=== PATIENT | female | born 1995 | race Caucasian/White ===

== ENCOUNTER 2020-09-11 20:52 | Emergency (ER) | payer SELFPAY ==
[~2020-09-11] VITALS: Ht 167.6 cm; Wt 61.7 kg
[~2020-09-11 20:52] MED LIST: FERR-252 PO; PREN-385
[2020-09-11 21:10] VITALS: BP 141/80
--- NOTE | 2020-09-11 21:12 | NUR ---
TO LOBBY A/W BED AMBULATORY
--- NOTE | 2020-09-11 23:05 | NUR ---
SEEN AND EXAMINED BY JESSICA WITH ORDERS AND CARRIED OUT
[2020-09-11 23:12] LABS: BASOPHILS # (AUTO) 0.1 K/uL (0.00-0.22); BASOPHILS % (AUTO) 0.8 % (0.0-2.0); EOSINOPHILS % (AUTO) 0.3 % (0.0-4.0); HEMATOCRIT 41.9 % (36-48); LYMPHOCYTES # (AUTO) 2.3 K/uL (2.5-16.5); LYMPHOCYTES % (AUTO) 22.6 % (20.5-51.1); MEAN CORPUSCULAR HEMOGLOBIN 31 pg (27-31); MEAN CORPUSCULAR HGB CONC 33 g/dL (33-37); MEAN CORPUSCULAR VOLUME 92.6 fL (80-94); MONOCYTES # (AUTO) 0.5 K/uL (0.8-1.0); MONOCYTES % (AUTO) 5.3 % (1.7-9.3); NEUTROPHILS # (AUTO) 7.3 K/uL (1.8-7.7); PLATELET COUNT (AUTO) 214 K/uL (140-450); RED BLOOD CELL COUNT(AUTO) 4.52 MIL/uL (4.20-5.40); RED CELL DISTRIBUTION WIDTH 13.5 % (11.6-13.7); WHITE BLOOD COUNT (AUTO) 10.3 K/uL (4.8-10.8)
[2020-09-11 23:50] LABS: ALBUMIN 4.7 g/dL (3.4-5.0); ANION GAP 13.7 (8-16); CARBON DIOXIDE 26.3 mmol/L (21-32); CREATININE 0.8 mg/dL (0.6-1.3); TOTAL BILIRUBIN 0.6 mg/dL (0.0-1.0)
--- NOTE | 2020-09-12 01:43 | NUR ---
EKG PERFORMED AT BEDSIDE. EKG READS SINUS RHYTHM @ 76
--- NOTE | 2020-09-12 02:20 | NUR ---
ALL RESULTS BACK AND NOTED BY ERMD AND FOR D/C
[2020-09-12 02:45] VITALS: BP 125/69
--- NOTE | 2020-09-12 02:45 | NUR ---
Patient discharged with v/s stable. Written and verbal after care instructions given and explained. Patient verbalized understanding. Ambulatory with steady gait. All questions addressed prior to discharge. Advised to follow up with PMD.
== END 2020-09-12 02:45 | disposition home or self-care (01) ==
LOC: MED 20:52
DX: R07.9 Chest pain, unspecified (principal); R61 Generalized hyperhidrosis; R42 Dizziness and giddiness; R11.0 Nausea; Z79.899 Other long term (current) drug therapy
CPT/HCPCS: 36415; 71045; 80053; 83880; 84484; 84702; 85025; 85379; 93005; 99285